=== PATIENT | male | born 2000 | race Asian ===

== ENCOUNTER → 2018-11-07 | Emergency (ER) | payer BC ==
[~2018-11-07] VITALS: Ht 170.2 cm; Wt 57.6 kg
[2018-11-07 20:48] VITALS: Ht 170.2 cm; Wt 57.6 kg
[2018-11-08 00:40] VITALS: BP 126/82
== END ==
LOC: ED 20:44
DX: S61.411A Laceration without foreign body of right hand, initial encounter (principal); W25.XXXA Contact with sharp glass, initial encounter; Y93.89 Activity, other specified; Y92.89 Other specified places as the place of occurrence of the external cause; Y99.8 Other external cause status
CPT/HCPCS: J2001; Q0092